=== PATIENT | female | born 1975 | race Caucasian/White ===

== ENCOUNTER → 2020-12-23 | Outpatient (CLI) | payer OTHER ==
[~2020-12-23] MED LIST: AMARYL 2MG TABLE2 MG PO; AMARYL2 MG PO; AMLODIPINE BESYL5 MG PO; ASPIRIN EC81 MG PO; ATORVASTATIN CA40 MG PO; BRILINTA 90 MG90 MG PO; CLARITIN10 MG PO; COZAAR100 MG PO; CRESTOR 10 MG T10 MG PO; CRESTOR20 MG PO; CRESTOR40 MG PO; CYCLOBENZAPRINE10 MG PO; D3 PO; EFFIENT10 MG PO; EPINEPHRIN0.3 MG/0.3 INJ; ESTRACE0.5 MG PO; ESTRADIOL0.5 MG PO; FENOFIBRATE160 M1 PO; FENOFIBRATE160 MG PO; FLONASE 0.05% N16 GM; GABAPENTIN300 MG PO; GLIMEPIRIDE4 MG PO; GLUCAGEN1 MG/1 ML IM; GLUTOSE 1537.5 GM PO; GRALISE300 MG PO; HYDRALAZINE HCL25 MG PO; HYGROTON TAB 2525 MG PO; IMITREX50 MG PO; ISORDIL PO; ISOSORBIDE MONO20 MG PO; ISOSORBIDE MONO30 MG PO; ISOSORBIDE MONO60 MG PO; K-DUR TAB 10 M10 MEQ PO; LASIX20 MG PO; LOPRESSOR 25 MG25 MG PO; LOPRESSOR50 MG PO; LORATADINE10 MG PO; LOSARTAN POTAS100 MG PO; LOW DOSE ASPIRI81 MG PO; METOPROLOL SUC100 MG PO; METOPROLOL SUC200 MG PO; MOBIC15 MG PO; NITROGLYCERIN0.4 MG SL; NITROSTAT0.4 MG SL; NOVOLOG FL100 UNIT/1 SC; NOVOLOG FL100 UNIT/1 SQ; NOVOLOG SQ; NOVOLOG100 UNIT/1 SC; NYSTATIN15 GM TP; PANTOPRAZOLE SO40 MG PO; PLAVIX 75 MG TA75 MG PO; PROCARDIA XL30 MG PO; PROTONIX40 MG PO; RANEXA500 MG PO; RANOLAZINE ER500 MG PO; SPIRONOLACTONE25 MG PO; ST. JOHN'S WOR300 M1 PO; TOPIRAMATE50 MG PO; TOPROL XL50 MG PO; TRELEGY ELLIPT1 EACH INH; TRESIBA FL100 UNIT/1 SQ; TRESIBA100 UNIT/1 SC; TRESIBA100 UNIT/1 SQ; VENTOLIN HFA 66.7 GM INH; VITAMIN D21250 MCG PO; VITAMIN D250000 UNIT PO; ZOFRAN4 MG PO; ZYRTEC10 M2 PO; ZYRTEC10 M3 PO; ZYRTEC10 MG PO; [UNRECOGNIZED DRUG - OTHER] PO
== END ==
LOC: KOH-I 12-20 10:00
DX: R10.9 Unspecified abdominal pain (principal)
CPT/HCPCS: 76700

== ENCOUNTER → 2021-02-01 | Day surgery (SDC) | payer OTHER | END | disposition home or self-care (01) | LOC: OR 06:24 | DX: D12.5 Benign neoplasm of sigmoid colon (principal); K22.70 Barrett's esophagus without dysplasia; K31.9 Disease of stomach and duodenum, unspecified; K21.00 Gastro-esophageal reflux disease with esophagitis, without bleeding; K64.0 First degree hemorrhoids; K64.4 Residual hemorrhoidal skin tags; D50.0 Iron deficiency anemia secondary to blood loss (chronic); I10 Essential (primary) hypertension; I25.10 Atherosclerotic heart disease of native coronary artery without angina pectoris; E78.00 Pure hypercholesterolemia, unspecified; E11.42 Type 2 diabetes mellitus with diabetic polyneuropathy; J44.9 Chronic obstructive pulmonary disease, unspecified; E66.01 Morbid (severe) obesity due to excess calories; Z68.39 Body mass index [BMI] 39.0-39.9, adult; Z95.5 Presence of coronary angioplasty implant and graft; Z98.890 Other specified postprocedural states; Z88.5 Allergy status to narcotic agent; Z88.8 Allergy status to other drugs, medicaments and biological substances; Z79.4 Long term (current) use of insulin; Z79.82 Long term (current) use of aspirin; Z79.899 Other long term (current) drug therapy | CPT/HCPCS: 82962; J2704; J7040 ==

== ENCOUNTER 2021-02-02 13:34 | Emergency (ER) | payer OTHER ==
[~2021-02-02 13:34] MED LIST changes: -FLONASE 0.05% N16 GM; -GLUCAGEN1 MG/1 ML IM; -GLUTOSE 1537.5 GM PO; -HYDRALAZINE HCL25 MG PO; -HYGROTON TAB 2525 MG PO; -IMITREX50 MG PO; -ISOSORBIDE MONO60 MG PO; -K-DUR TAB 10 M10 MEQ PO; -NYSTATIN15 GM TP; -PROCARDIA XL30 MG PO; -PROTONIX40 MG PO; -ST. JOHN'S WOR300 M1 PO; -TRESIBA FL100 UNIT/1 SQ
[2021-02-02 17:35] LABS: HEMOGLOBIN 11.5 gm/dl (12.3-15.3); RED BLOOD COUNT 4.19 M/UL (4.00-5.10); WHITE BLOOD COUNT 12.6 K/UL (4.5-11.0)
[2021-06-08] MEDS ORDERED: TRELEGY ELLIPT1 EACH INH (07:34)
[2021-06-08] MEDS ORDERED: ISOSORBIDE MONO60 MG PO (07:36)
[2021-06-08] MEDS ORDERED: VENTOLIN HFA 66.7 GM INH (07:36)
[2021-06-08] MEDS ORDERED: TRESIBA FL100 UNIT/1 SQ (10:21)
== END 2021-02-02 19:50 | disposition home or self-care (01) ==
LOC: ER1 13:34
PROVIDERS: Emergency Medicine
DX: K62.5 Hemorrhage of anus and rectum (principal); I25.10 Atherosclerotic heart disease of native coronary artery without angina pectoris; E11.22 Type 2 diabetes mellitus with diabetic chronic kidney disease; I12.9 Hypertensive chronic kidney disease with stage 1 through stage 4 chronic kidney disease, or unspecified chronic kidney disease; N18.9 Chronic kidney disease, unspecified; Z90.49 Acquired absence of other specified parts of digestive tract; Z90.710 Acquired absence of both cervix and uterus
CPT/HCPCS: 80053; 85025; 85610; 85730; 99284; Q9967

== ENCOUNTER → 2021-02-09 | Outpatient (CLI) | payer OTHER ==
[~2021-02-09] MED LIST changes: +FLONASE 0.05% N16 GM; +GLUCAGEN1 MG/1 ML IM; +GLUTOSE 1537.5 GM PO; +HYDRALAZINE HCL25 MG PO; +HYGROTON TAB 2525 MG PO; +IMITREX50 MG PO; +ISOSORBIDE MONO60 MG PO; +K-DUR TAB 10 M10 MEQ PO; +NYSTATIN15 GM TP; +PROCARDIA XL30 MG PO; +PROTONIX40 MG PO; +ST. JOHN'S WOR300 M1 PO; +TRESIBA FL100 UNIT/1 SQ
[2021-02-09 15:41] LABS: RED BLOOD COUNT 3.02 M/UL (4.00-5.10); WHITE BLOOD COUNT 12.3 K/UL (4.5-11.0)
[2021-02-09 15:42] LABS: HEMOGLOBIN 8.3 gm/dl (12.3-15.3)
[2021-02-10 09:13] LABS: CREATININE, URINE 50.8 mg/dL (Not Estab.)
== END ==
LOC: LAB 14:58
PROVIDERS: Internal Medicine Nephrology
DX: N18.30 Chronic kidney disease, stage 3 unspecified (principal); D50.9 Iron deficiency anemia, unspecified
CPT/HCPCS: 80048; 82043; 82570; 82728; 83540; 83550; 85025; 85027

== ENCOUNTER → 2021-03-01 | Outpatient (CLI) | payer OTHER | LOC: LAB 12:24 | PROVIDERS: Internal Medicine Nephrology | DX: N18.30 Chronic kidney disease, stage 3 unspecified (principal) | CPT/HCPCS: 36415; 80048 ==

== ENCOUNTER 2021-06-08 14:31 | Observation (INO) | payer OTHER ==
[~2021-06-08] VITALS: Ht 175.3 cm; Wt 120.2 kg
[~2021-06-08 14:31] MED LIST changes: -FLONASE 0.05% N16 GM; -GLUCAGEN1 MG/1 ML IM; -GLUTOSE 1537.5 GM PO; -HYDRALAZINE HCL25 MG PO; -HYGROTON TAB 2525 MG PO; -IMITREX50 MG PO; -K-DUR TAB 10 M10 MEQ PO; -NYSTATIN15 GM TP; -PROCARDIA XL30 MG PO; -PROTONIX40 MG PO; -ST. JOHN'S WOR300 M1 PO
[2021-06-08 15:04] LABS: HEMOGLOBIN 11.4 gm/dl (12.3-15.3); RED BLOOD COUNT 4.19 M/UL (4.00-5.10); WHITE BLOOD COUNT 10.8 K/UL (4.5-11.0)
[2021-06-08] MEDS ORDERED: PROCARDIA XL30 MG PO (17:20)
[2021-06-08] MEDS ORDERED: GABAPENTIN300 MG PO ×2 (17:20)
[2021-06-08] MEDS ORDERED: HYGROTON TAB 2525 MG PO (17:21)
[2021-06-08] MEDS ORDERED: FLONASE 0.05% N16 GM (17:26)
[2021-06-08] MEDS ORDERED: IMITREX50 MG PO (17:27)
[2021-06-08] MEDS ORDERED: HYDRALAZINE HCL25 MG PO (17:27)
[2021-06-08] MEDS ORDERED: ST. JOHN'S WOR300 M1 PO ×2 (17:28→17:30)
[2021-06-08] MEDS ORDERED: PROTONIX40 MG PO (17:28)
[2021-06-08] MEDS ORDERED: NYSTATIN15 GM TP (17:29)
[2021-06-09 03:14] LABS: HEMOGLOBIN 11.2 gm/dl (12.3-15.3); RED BLOOD COUNT 4.11 M/UL (4.00-5.10); WHITE BLOOD COUNT 10.1 K/UL (4.5-11.0)
[2021-06-09 03:32] LABS: BUN/CREATININE RATIO 17 (0-10)
[2021-06-09] MEDS ORDERED: GLUCAGEN1 MG/1 ML IM (13:39)
[2021-06-09] MEDS ORDERED: GLUTOSE 1537.5 GM PO (13:39)
[2021-06-09] MEDS ORDERED: K-DUR TAB 10 M10 MEQ PO (17:12)
== END 2021-06-09 18:45 | disposition home or self-care (01) ==
LOC: ER1 14:31 → M/S 16:12 → CDU 16:12 → M/S 19:24
PROVIDERS: Emergency Medicine; Physician Assistant Medical; ADMIT Internal Medicine
DX: E16.2 Hypoglycemia, unspecified (principal); I25.10 Atherosclerotic heart disease of native coronary artery without angina pectoris; E78.5 Hyperlipidemia, unspecified; N18.9 Chronic kidney disease, unspecified; E11.22 Type 2 diabetes mellitus with diabetic chronic kidney disease; I12.9 Hypertensive chronic kidney disease with stage 1 through stage 4 chronic kidney disease, or unspecified chronic kidney disease; J45.909 Unspecified asthma, uncomplicated; G47.33 Obstructive sleep apnea (adult) (pediatric); E66.9 Obesity, unspecified; Z90.49 Acquired absence of other specified parts of digestive tract; Z88.5 Allergy status to narcotic agent; Z79.4 Long term (current) use of insulin; Z20.822 Contact with and (suspected) exposure to COVID-19; Z88.8 Allergy status to other drugs, medicaments and biological substances; R07.89 Other chest pain; M81.0 Age-related osteoporosis without current pathological fracture; E11.42 Type 2 diabetes mellitus with diabetic polyneuropathy; G43.909 Migraine, unspecified, not intractable, without status migrainosus
CPT/HCPCS: 36415; 71045; 78452; 80048; 80053; 82550; 82553; 82962; 83690; 83735; 83874; 84484; 85025; 85027; 93005; 93017; 94640; 94664; 94760; 96372; 99285; A9502; G0378; J1644; J2785; U0002

== ENCOUNTER → 2021-06-23 | Outpatient (CLI) | payer OTHER ==
[~2021-06-23] MED LIST changes: +FLONASE 0.05% N16 GM; +GLUCAGEN1 MG/1 ML IM; +GLUTOSE 1537.5 GM PO; +HYDRALAZINE HCL25 MG PO; +HYGROTON TAB 2525 MG PO; +IMITREX50 MG PO; +K-DUR TAB 10 M10 MEQ PO; +NYSTATIN15 GM TP; +PROCARDIA XL30 MG PO; +PROTONIX40 MG PO; +ST. JOHN'S WOR300 M1 PO
== END ==
LOC: HEART 5 09:00
DX: I25.10 Atherosclerotic heart disease of native coronary artery without angina pectoris (principal)
CPT/HCPCS: 93306

== ENCOUNTER → 2021-11-29 | Outpatient (CLI) | payer MEDICARE, OTHER | LOC: MAMO 01-05 10:00 | DX: N63.21 Unspecified lump in the left breast, upper outer quadrant (principal) | CPT/HCPCS: 76642-LT; 77066; G0279 ==

== ENCOUNTER → 2021-12-20 | Outpatient (CLI) | payer MEDICARE, OTHER ==
[2021-12-20 11:49] LABS: HEMOGLOBIN 11.1 gm/dl (12.3-15.3); RED BLOOD COUNT 3.94 M/UL (4.00-5.10); WHITE BLOOD COUNT 10.1 K/UL (4.5-11.0)
[2021-12-21 07:12] LABS: A/G RATIO 1.6 (1.2-2.2); ALKALINE PHOSPHATASE, S 128 IU/L (44-121); ALT (SGPT) 11 IU/L (0-32); AST (SGOT) 13 IU/L (0-40); BILIRUBIN, TOTAL 0.3 mg/dL (0.0-1.2); BUN 24 mg/dL (6-24); BUN/CREATININE RATIO 14 (9-23); CALCIUM, SERUM 9.6 mg/dL (8.7-10.2); CARBON DIOXIDE, TOTAL 18 mmol/L (20-29); CHLORIDE, SERUM 108 mmol/L (96-106); CHOLESTEROL, TOTAL 158 mg/dL (100-199); CREATININE, SERUM 1.73 mg/dL (0.57-1.00); EGFR IF AFRICN AM 41 (>59); EGFR IF NONAFRICN AM 35 (>59); GLOBULIN, TOTAL 2.6 g/dL (1.5-4.5); GLUCOSE, SERUM 111 mg/dL (65-99); HDL CHOLESTEROL 24 mg/dL (>39); LDL CHOLESTEROL CALC 73 mg/dL (0-99); POTASSIUM, SERUM 4.5 mmol/L (3.5-5.2); PROTEIN, TOTAL, SERUM 6.8 g/dL (6.0-8.5); SODIUM, SERUM 140 mmol/L (134-144); T. CHOL/HDL RATIO 6.6 ratio (0.0-4.4); TRIGLYCERIDES 386 mg/dL (0-149); VITAMIN D, 25-HYDROXY 24.7 ng/mL (30.0-100.0)
[2021-12-21 08:14] LABS: ESTIM. AVG GLU (EAG) 171 mg/dL (.); HEMOGLOBIN A1C 7.6 % (4.8-5.6)
[2021-12-21 12:14] LABS: CREATININE, URINE 55.7 mg/dL (Not Estab.)
== END ==
LOC: LAB 10:56
PROVIDERS: Nurse Practitioner Family
DX: I12.9 Hypertensive chronic kidney disease with stage 1 through stage 4 chronic kidney disease, or unspecified chronic kidney disease (principal); E11.22 Type 2 diabetes mellitus with diabetic chronic kidney disease; N18.32 Chronic kidney disease, stage 3b; E78.5 Hyperlipidemia, unspecified; E55.9 Vitamin D deficiency, unspecified
CPT/HCPCS: 36415; 80053; 80061; 82043; 82570; 82607; 83036; 84156; 84439; 84443; 85025

== ENCOUNTER → 2022-01-27 | Outpatient (CLI) | payer MEDICARE, OTHER ==
[2022-01-28 08:14] LABS: HIV AB/P24 AG SCREEN Non Reactive (Non Reactive)
[2022-01-28 09:14] LABS: HBSAG SCREEN Negative (Negative); HEP A AB, IGM Negative (Negative); HEP B CORE AB, IGM Negative (Negative); HEP C VIRUS AB 0.1 (0.0-0.9); HEP C VIRUS AB <0.1 (0.0-0.9)
[2022-01-28 14:14] LABS: TREPONEMA PALLIDUM ANTIBODIES Non Reactive (Non Reactive)
[2022-01-30 21:11] LABS: CHLAMYDIA BY NAA Negative (Negative); GONOCOCCUS BY NAA Negative (Negative); TRICH VAG BY NAA Negative (Negative)
== END ==
LOC: LAB 10:52
PROVIDERS: Nurse Practitioner Family
DX: B19.10 Unspecified viral hepatitis B without hepatic coma (principal); Z20.2 Contact with and (suspected) exposure to infections with a predominantly sexual mode of transmission
CPT/HCPCS: 36415; 80074; 86780; 87389; 87661